=== PATIENT | female | born 1940 | race Caucasian/White ===

== ENCOUNTER 2018-02-26 08:15 | Inpatient (IN) | payer OTHER ==
[~2018-02-26] VITALS: Ht 152.4 cm; Wt 72.6 kg
[2018-02-26] MEDS ORDERED: ASA81 MG PO (10:42)
[2018-02-26] MEDS ORDERED: METOPROLOL SUCC25 MG PO (10:42)
[2018-03-06] MEDS ORDERED: DUI500 PO (16:39)
[2018-03-06] MEDS ORDERED: XARELTO10 MG PO (16:39)
[2018-03-06] MEDS ORDERED: PERCOCET 5-3251 EACH PO (16:39)
== END 2018-03-06 17:00 | disposition home or self-care (01) | DRG 470 ==
LOC: O/R 03-04 05:48 → SURH 03-04 05:48 → O/R 03-04 08:15 → SURH 03-04 10:24
PROVIDERS: Orthopaedic Surgery
PROC: 0QNF0ZZ Release Left Patella, Open Approach (ICD-10-PCS; 2018-03-04)
PROC: 0SRD0J9 Replacement of Left Knee Joint with Synthetic Substitute, Cemented, Open Approach (ICD-10-PCS; principal; 2018-03-04 07:00)
DX: M17.12 Unilateral primary osteoarthritis, left knee (principal); D62 Acute posthemorrhagic anemia; M22.12 Recurrent subluxation of patella, left knee; E66.09 Other obesity due to excess calories; M81.0 Age-related osteoporosis without current pathological fracture; I10 Essential (primary) hypertension